=== PATIENT | male | born 1935 | race Caucasian/White ===

== ENCOUNTER 2016-07-02 05:47 | Inpatient (IN) | payer OTHER ==
--- NOTE | 2016-05-20 13:57 | PCM.ANEPRE ---
Anesthesia Pre-Op Review Reason for Review: SURGEON'S REQUEST "AGE,COMORBIDITIES,HX OF JAW SURG, CELLULITIS,FRAILITY" Anesthesia Recommendations: Proceed with Procedure Additional Comments 80 y/o male scheduled for L4-5 partial laminectomy on 05/21/16. Comorbidities include neurogenic claudication, HTN, venous stasis, weight loss. EKG performed on 05/08/16 had leads reversed which showed possible A. Fib. Upon discovering mistake an EKG with leads was performed which showed NSR. No other h/o cardiac disease. Nothing in chart review that would require delay of surgery. Continue with surgery as planned pending evaluation by DOS anesthesiologist. Alexander Gonzalez MD May 20, 2016 13:57
--- NOTE | 2016-06-28 09:05 | PCM.HPSURG ---
Subjective Date of Service: Jun 19, 2016 Referring Provider: Admitting Physician: Primary Care Physician: Kisha Wolff MD Attending Physician: Axel Ruiz MD Chief Complaint SEE BELOW History of Present Illness Patient: Sergio Bryant Date of : 1935 Visit Type: Pre Op Visit Date: 06/19/2016 01:30 PM Historian: self This 80 year old male presents for Pre-Op L4-5 Partial Laminectomy & Decompression. History of Present Illness: 1. Pre-Op L4-5 Partial Laminectomy & Decompression Sergio Bryant is a 80 year old male referred by Primary Care Provider (PCP) Dr. David Jennings M.D. & L&I Attending Dr. Kisha Wolff M.D. 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 After the patient's last preoperative appointment on 05/08/2016 his surgery was rescheduled for required Cardiology, PCP, & Nephrology clearance for surgery. The patient assures us that he has obtained clearance &'s confirmation documentation & test results are now pending. This patient was last seen for evaluation by Dr. Axel Ruiz M.D. on 2015 documenting grade 1 spondylolisthesis at L4-5 with severe canal stenosis at this level and symptoms of neurogenic claudication. 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 As he was opening the garage door, it jumped off the track, he was suddenly supporting at 250 pound weight that caused the sudden onset of low back pain and radiating pain into the left leg. His symptoms ease. With rest and anti- inflammatory agents and he was able to resume work activities. In 2012 he was again at work trying to maneuver a trailer over a hitch. As a trailer was let now admits the hitch and he was supporting an 80 pound weight old him down suddenly. This wrenched his back causing a flareup of low back and radiating pain into the left buttock. Because of this work injury, his L&I claim was reopened. The patient reports that over the past year he has had increased low back pain, impairment of balance, numbness and paresthesias constantly in the feet below the ankle. Prolonged standing causes pain into the buttocks and posterior legs to the knee with associated numbness and paresthesias. He reported that he could walk for long distances year ago. He now has symptoms of neurogenic claudication and walking is limited to 20-30 feet. Walking causes an increase in low back pain and diffuse numbness and paresthesias in his legs that can progress to weakness. If he is able to sit and lean forward for 5-10 minutes the back pain eases up and the pain down the posterior leg eases up in his strength in his legs returns. He also has low back pain associated with lying on his back that eases up if he turns on his side and curls into a position. This patient was noted to have severe canal stenosis at L4-5 and a grade 1 spondylolisthesis at L4-5. 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 Dr. Axel Ruiz, and the patient had a discussion today with regards to his neurosurgical plan. They have decided to proceed with a lumbar spinal neurosurgical decompression only. They discussed all the risks and benefits associated with the procedure as well as reasonable expectations with regards to surgical outcomes & the patient elected to proceed with surgery as planned. The patient denies any related complete or acute loss of control of bowel or bladder function, saddle paresthesia or anesthesia. The patient has a pertinent positive past medical, surgical and social history for cancer and reconstructive jaw surgery at 13, serious cellulitis infection 10 years ago (recent left leg infection resolving & completing Keflex course), chronic renal insufficiency, hypertension, weight loss & anemia improved per PCP, history of dizziness, hypoglycemia, depression, & anxiety. The patient's related complaints have been a serious detriment to their happiness and activities of daily living. Having failed conservative treatment the patient presents today for their decision for surgery appointment involving open L4-5 partial laminectomy & decompression for treatment of lumbar spondylosis, canal stenosis at L4-5 & neurogenic claudication; related to severe , intractable, and debilitating low back pain radiating to the left > right lower extremities with numbness, paresthesias, & weakness with with standing up straight or walking & better leaning forward or sitting. The procedure is scheduled to be performed by Dr. Axel Ruiz M.D. on 07/02/2016 ANESTHESIA NOTE: We are requesting anesthesia consultation for evaluation of age & comorbidities including but not limited to history of jaw surgery, frailty , & cellulitis. The patient has a resolving left lower extremity infection after completing a course of cephalexin. He has seen Nephrology for consultation of chronic renal insufficiency. The patient is also seen Cardiology & obtained clearance as well. We will obtain recent perioperative screening & test results as well as PCP, Cardiology, & Nephrology medical clearance for surgery documentation & submit for preoperative Anesthesia review. Problem List: Problem Description NSAID induced gastritis ^ Mixed hyperlipidemia BPH associated with nocturia Essential hypertension Spinal stenosis of lumbar region with radiculopathy Radiculopathy, lumbar region Peripheral polyneuropathy Right lumbar radiculitis Medical/Surgical/Interim History Reviewed, no change. Last detailed document date:06/19/2016. Family History: Reviewed, no changes. Last detailed document date:06/19/2016. Social History: Reviewed, no changes. Last detailed document date: 06/19/2016. Allergies: Ingredient Reaction Medication Name Comment NO KNOWN ALLERGIES Reviewed, no changes. Review of Systems System Neg/Pos Details Neuro Negative Dizziness, headache and seizures. GI Negative Abdominal pain, constipation, diarrhea, nausea and vomiting. Cardio Negative Chest pain, irregular heartbeat/palpitations, leg swelling and pacemaker. Integumentary Negative Mrsa and rash. Eyes Negative Double vision and vision loss. Constitutional Negative Chills and fever. Josiah/Lymph Negative Blood clots. Respiratory Negative Dyspnea, apnea and wheezing. Negative Dysuria, urge incontinence and urinary incontinence. Psych Negative Anxiety and depression. Endocrine Negative Weight gain and weight loss. MS Negative Back pain, bone/joint symptoms and muscle weakness. ENMT Negative Hearing loss. Vital Signs Height Time ft in cm Last Measured Height Position % 1:30 PM 5.0 5.00 165.10 05/08/2016 Weight/BSA/BMI Time lb oz kg Context % BMI kg/m2 BSA m2 1:30 PM 137.80 62.505 dressed with shoes 22.93 Blood Pressure Time BP mm/Hg Position Side Site Method Cuff Size 1:30 PM 111/73 sitting wrist automatic adult Temperature/Pulse/Respiration Time Temp F Temp C Temp Site Pulse/min Pattern Resp/ min 1:30 PM 97.1 36.2 temporal 47 16 Pain Scale Time Pain Score Method 1:30 PM 8/10 Numeric Pain Intensity Scale Comments Time Comments 1:30 PM Tramadol this AM Measured By Time Measured by 1:30 PM Maddie Ball RN Physical Exam Exam Findings Details Comments WD/WN, elderly male who is AO x 3, cooperative,& appears to be in NAD w/ language & speech that is intact & fluent. There is no evidence of recent or remote memory impairment. The patient's knowledge is appropriate for age & level of education w/ a pleasant affect & euthymic mood. Ambulates w/ no difficulty. NC/AT, PERRL, EOMI, w/o facial droop, hearing grossly intact, nostrils patent, oral cavity and pharynx normal. Deformed Jaw Neck supple, w/o LAD or thyromegaly. Heart reveals RRR w/o audible murmurs Lungs CTAB Abdomen is NT/ND He walks slowly with a bent forward stooped posture Venous stasis ulcers in both legs & healing LLE infxn. Neg Straight Leg Raise, Neg Patricks DTRs absent at the knees and ankles Motor strength is 3/5 right extensor hallucis longus, 45 left extensor hallucis longus, other motor groups 5/5 Diffuse diminished sensation in the right leg and foot Assessment/Plan # Detail Type Description 1. Assessment Lumbar stenosis with neurogenic claudication (M48.06). 2. Assessment Preoperative examination (Z01.818). Patient Plan We including your Attending Surgeon have discussed the risks and benefits associated your scheduled procedure which you have verbally acknowledged understanding including but not limited to the possibility of an outcome that we are unable to predict or was not mentioned. 1. You are scheduled for a open L4-5 partial laminectomy & decompression with Dr. Axel Ruiz M.D. at [facility] on 07/02/2016. 2. Check in time is 6:00 AM. Also please ignore instructions below if told otherwise by your preadmission nurse or if you do not take the medications listed below. 3. Nothing to eat after midnight the night before surgery. You may take all of your "approved" medications with small sips of water. Remember to take your a.m. hypertension medication if it is a beta paco and ends in "olol. Otherwise ask your doctor if you need to hold your a.m. hypertension medication. 4. No aspirin, ibuprofen, Naprosyn, or other NSAIDs starting 7 days prior to surgery. 5. Please stop Warfarin/Coumadin or other blood thinners such as Plavix, Aggrenox, or Xarelto 7 days prior to your surgical procedure and follow specific instructions from your prescribing provider. 6. Please stop Lovenox bridging in the morning one day prior to procedure. 7. Please stop Suboxone/Buprenorphine at least 4 days prior to procedure. 8. Go to the hospital today to get her preoperative testing done. Take the order form to the surgery desk on the second floor of the hospital, [facility] (main entrance next to the emergency entrance). I will notify you if there is any test results that require further workup prior to surgery. 9. Follow the instructions you were given today, use the cleansing cloths the night before as well as the morning of her surgery. 10. If you are prescribed inhalers, CPAP or BiPAP machines you use at home bring along with you to the hospital. 11. ONLY If you take medications for Diabetes: If you have an insulin pump continue lowest (typically night-time) basal rate into the a.m. If you do not have a pump check h your a.m. blood sugar and hold insulin if BS less than 100. If you are taking long-acting, intermediate acting (NPH) or 70/30 preparation : Take half on day of procedure. If you are taking ultra long-acting insulin such as glargine, Lantus either at night or in the a.m. continue as scheduled ( including day of surgery). If you take short acting regular insulin (insulin not delivered via pump) discontinue on day of procedure. 12. Please call if you have any questions before your surgery: [phone]. Today's instructions/counseling include(s) Pre-operative instructions given to the patient and or legal automotive leasing sales representative(s) orally and in writing. 13. Our office will contact you if there are any test results that require further workup prior to surgery. 14. Please follow up with her Primary Care Provider & with Cardiology SARAH to get medical & cardiology clearance for surgery otherwise we may have to reschedule your procedure. Provider Plan The patient's history and examination as well as radiological findings were reviewed with Dr. Axel Ruiz M.D. and conveyed the patient in detail. The findings are consistent with lumbar spondylosis, canal stenosis at L4-5, & neurogenic claudication and are most likely the cause of the patient's severe, intractable, and debilitating low back pain radiating to the left > right lower extremities with numbness, paresthesias, & weakness with standing up straight or walking & better leaning forward or sitting. The patient has failed extensive conservative treatment for this condition. The treatment options were discussed with the patient. The options include attempt to live with the condition, reattempt conservative treatment, try a pain management intervention / injection or consider a surgical intervention. We are not extremely optimistic that further conservative treatment, pain management intervention and/or injection will adequately resolve the patient's symptoms of severe, intractable, and debilitating low back pain radiating to the left > right lower extremities with numbness, paresthesias, & weakness with with standing up straight or walking & better leaning forward or sitting. Therefore we recommend open L4-5 partial laminectomy & decompression. The patient was provided/offered educational materials pertaining to their diagnosis and the above discussed procedure. We discussed the risks and benefits associated with this surgery. A spine model was used to explain the nature of this type of surgery. The risk of the required anesthesia was also mentioned including but not limited to organ failure such as heart attack, pneumonia and stroke even . The risk of this type of surgery was also mentioned. Including but not limited to an unsuccessful outcome, residual symptoms, referred or radiating posterior spinal myofascial inflammatory pain or spasm, post operative instability, instrumentation failure, sensory changes, blood loss, blood clots, wound infection, spinal cord or nerve damage, CSF or lymph leak, damage to neighboring structures such as the abdominal vasculature, bowel, ureter, and bladder, resulting in temporary or permanent dysfunction, even disability, paralysis, and . The recovery of this type of surgery was also mentioned. The chances for improvement of the neurogenic claudication related symptomatology at one year is 70-80%. The chances of improvement of local mechanical lower back pain is 50%. The patient verbalized understanding all the risks and benefits, knowing that it is impossible to predict or guarantee every surgical outcome; and would like to proceed with the above discussed procedure anyways. Surgery is scheduled for 05/21/[address] [facility] preoperative screening tests, medicine restrictions, and logistical protocols apply. Any preoperative testing is within normal limits to undergo the above discussed procedure unless otherwise noted in the medical record. ANESTHESIA NOTE: We are requesting anesthesia consultation for evaluation of age & comorbidities including but not limited to history of jaw surgery, frailty , & cellulitis. The patient has a resolving left lower extremity infection after completing a course of cephalexin. He has seen Nephrology for consultation of chronic renal insufficiency. The patient is also seen Cardiology & obtained clearance as well. We will obtain recent perioperative screening & test results as well as PCP, Cardiology, & Nephrology medical clearance for surgery documentation & submit for preoperative Anesthesia review. Medications (added, continued or stopped this visit): Start Date Medication Directions Stop Date Aleve 220 mg tablet take 2 tablet by oral route every 12 hours as needed 05/08/2016 docusate sodium 250 mg capsule take 1 capsule by oral route 2 times every day 07/18/2009 furosemide 40 mg Tab take 1 tablet (40MG) by ORAL route every day 03/15/2015 lisinopril 10 mg tablet take 1 tablet by oral route every day 05/20/2016 Randolph 5 mg-325 mg tablet take 1-2 tablet by oral route every 6 hours as needed for pain 02/20/2015 Wellbutrin XL 300 mg 24 hr tablet, extended release take 1 tablet by oral route every day Counseling/Educational Factors: Counseling / educational factors reviewed. Counseling / educational factors reviewed. This is a visit of 60 minutes. 50 minutes were spent counseling. The patient was checked out at 2:37 PM. 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 Provider: Mahamed PONCE 06/19/2016 03:48 PM Document generated by: Mahamed Jiménez 06/19/2016 03:48 PM CC Providers: David Wilde [facility] [id number] [place] [id number] [address] Allergy Allergies: Coded Allergies: No Known Allergies (Unverified , 05/08/16) Social History Hx Alcohol Use: No Hx Substance Use: No PMH HEENT History History of ENT Problems?: Yes HEENT History: Positive for:: Abnormal Airway (S/P JAW RESECTION/RECONSTRUC. W / DONOR BONE FROM HIP) Hearing Problem Other HEENT Pertinent History: CA OF JAW @ AGE 13YRS; HX OF INFECTION/ CELLULITIS 10 YRS AGO Cardiovascular History History of Heart Problems?: Yes Cardiovascular History: Positive for:: Atrial Fibrillation (EKG 05/08/16 showed AF r/t reversal of limb leads-pt actually in NSR) Hypertension (HYPERLIPIDEMIA) Denies:: Heart Murmur Irregular Heartbeat Respiratory History of Respiratory Problem: No Respiratory History: Denies:: Use of C-PAP Machine Neurological History Hx Neurologic Problems?: Yes Neurological History: Positive for:: Dizziness (INTERMITTANT) Other Neurological History: C/OF PERIPHERAL POLYNEUROPATHY Gastrointestinal History HX of GI Problems?: Yes Gastrointestinal History: Denies:: Gastroesphageal Reflux (HX NSAID-INDUCED GASTRITIS) Other GI Pertinent History: HX OF RECENT UNINTENTIONAL WEIGHT LOSS Genitourinary History Hx of Gu Problems?: Yes Other Pertinent History?: C/OF NOCTURIA Female/Male History Reproductive History Male: Positive for: Prostate Problems (BPH) Denies: Scrotal Mass Skin History Skin History: Positive for:: Pressure Ulcers (several small venous stasis ulcerations on lower legs) Denies:: History Skin Disorders? Musculoskeletal History Hx Musculoskeletal Problems?: Yes Musculoskeletal History: Positive for:: Back Injury (C/OF LOWER BACK PAIN) Psycho Social History Hx of Psycho/Social Problems?: Yes Psycho Social History: Positive for:: Anxiety Hx Depression (SEVERE) Other History Hx Any Other Health Problems?: Yes Other History: Positive for:: Cancer (JAW) Denies:: Endocrine Disease Hospitalization Thyroid Disease Diabetes: No (C/OF BOUTS OF HYPOGLYCEMIA) Social History Hx Alcohol Use: NoHx Substance Use: No Mahamed Jiménez PA-C Jun 28, 2016 09:05
[2016-07-02] VITALS (14 sets, daily range): BP systolic 135–184; BP diastolic 63–89; PULSE 61–91; RESP 11–20; O2SAT 99–100
[~2016-07-02] VITALS: Ht 165.1 cm; Wt 62.1 kg
[2016-07-02] MEDS: Lactated Ringer's 1,000 ML IV SCH ×5 (05:00→23:30)
[~2016-07-02 05:47] MED LIST: BUPR300T51 PO; Bacitracin 50,000 unit Inj IRRIGATION ONE; Bupivacaine Liposome 1.3% 20 mL Inj INFILTRATE ONE; CeFAZolin Inj 2 GM in IV Premix 1 EACH IV ONE; DOCU250C2 PO; FURO-128 PO; HYDR-4003 PO; LISI10TA PO; Lactated Ringer's 1,000 ML IV SCH; NAPR220C11 PO; Thrombin Powder 5,000 Unit TOPICAL ONE
[2016-07-02] MEDS ORDERED: Bupivacaine Liposome 1.3% 20 mL Inj INFILTRATE SCH (06:00)
[2016-07-02] MEDS: CeFAZolin Inj 2 GM in IV Premix 1 EACH IV SCH ×2 (06:00→07:45)
[2016-07-02] MEDS ORDERED: Bacitracin 50,000 unit Inj IRRIGATION SCH (06:00)
[2016-07-02] MEDS ORDERED: Thrombin Powder 5,000 Unit TOPICAL SCH (06:00)
--- NOTE | 2016-07-02 07:01 | PCM.HPANE ---
Patient Data Surgeon Admitting Provider: Attending Provider:Axel Ruiz MD Primary Care Physician:Other,Physician Other Provider:Aristides Shelby Anesthesia Reason for Visit Lumbar Stenosis With Neurogenic Claudication Ht/WT & BMI Height (Feet): 5 Height (Inches): 5.00 Weight (Kilograms): 62.1 Body Mass Index 22.00 Allergies Coded Allergies: No Known Allergies (Unverified , 05/08/16) Past Anesthesia History Anesthesia History: Positive for:: Abnormal Airway (S/P JAW RESECTION/ RECONSTRUC. W/ DONOR BONE FROM HIP), Denies:: Anesthesia Reactions, Malignant Hyperthermia Diabetes History Hx Diabetes?: No Current Bedside Blood Glucose: 89 MRSA MRSA: No Medications Hypertension Medication: Yes (LASIX,LISINOPRIL) Home Meds Incl Beta Lisa: No Reported Medications Bupropion ER (Wellbutrin XL)300 Mg Tab.er.[id number] Mg PO DAILY Ref 0 05/08/16 Hydrocodone-Acetaminophen 5-325 mg 1 Each Tablet1-2 Tablet PO Q6H PRN For Pain Ref 0 05/08/16 Lisinopril 10 Mg [id number] Mg PO DAILY 30 Days Ref 0 05/08/16 Furosemide (Lasix)40 Mg [id number] Mg PO DAILY 30 Days Ref 0 05/08/16 Docusate Sodium 250 Mg [id number] Mg PO BID PRN For Constipation Ref 0 05/08/16 Naproxen Sodium (Aleve)220 Mg [id number] Mg PO BID PRN prn 05/08/16 History History of ENT Problems?: Yes HEENT History: Positive for:: Abnormal Airway (S/P JAW RESECTION/RECONSTRUC. 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; HX OF INFECTION/ CELLULITIS 10 YRS AGO Hx of Heart Problems?: Yes Cardiovascular History: Positive for:: Atrial Fibrillation (EKG 05/08/16 showed AF r/t reversal of limb leads-pt actually in NSR) Hypertension (HYPERLIPIDEMIA) Denies:: Heart Murmur Irregular Heartbeat Hx of Respiratory Problem?: No Respiratory History: Denies:: Use of C-PAP Machine Hx Neurologic Problems?: Yes Neurological History: Positive for:: Dizziness (INTERMITTANT) Other Neurological Pertinent: C/OF PERIPHERAL POLYNEUROPATHY Hx of GI Problems?: Yes Gastrointestinal History: Denies:: Gastroesphageal Reflux (HX NSAID-INDUCED GASTRITIS) Other GI Pertinent History: HX OF RECENT UNINTENTIONAL WEIGHT LOSS Hx of Problems?: Yes Other Pertinent History: C/OF NOCTURIA Male Hx: Positive for:: Prostate Problems (BPH) Denies:: Scrotal Mass Testicular Surgery Skin History: Positive for:: Pressure Ulcers (several small venous stasis ulcerations on lower legs) Denies:: History Skin Disorders? Hx Musculoskeletal Problems?: Yes Musculoskeletal History: Positive for:: Back Injury (C/OF LOWER BACK PAIN) Hx of Psycho/Social Problems?: Yes Psycho Social History: Positive for:: Anxiety Hx Depression (SEVERE) Hx Surgeries?: Yes (JAW RESECTION/RECONSTRUCTION W/ DONOR BONE FROM HIP) Hx Any Other Health Problems?: Yes Other History: Positive for:: Cancer (JAW) Denies:: Endocrine Disease Hospitalization Thyroid Disease History Blood Transfusions: Denies:: Blood Transfusions Hx Diabetes: NoBedside Blood Glucose: 89 Hx Alcohol Use: NoHx Substance Use: No Smoking Status: Never Smoker Have You Smoked inLast 12 mo: No Stop/Bang S-Snoring: Do You Snore Loudly: No T-Tired: feel tired, fatigued: No O-Obsered: Observed not breath: No P-Blood Pressure: treated: Yes B- Body Mass Index > 35 kg/m2: No A- Age over 50: Yes N- Neck Large Circumference: No G- Gender Male: Yes DHARA Total Score: 3 DHARA Risk Assessment: High Risk, =/>3 Yes DHARA Category 2: Yes Risk Assessment Category Category 1A: Patient has history of documented sleep apnea, and HAS NOT received any narcotic, sedative or anesthesia administration during this stay. Category 1B: Patient has history of documented sleep apnea, and HAS received any narcotic , sedative or anesthesia administration during this stay Category 2: Patient has SUSPECTED Obstructive Sleep Apnea, and HAS received any narcotic , sedative or anesthesia administration during this stay. Category 3: Patient has SUSPECTED Obstructive Sleep Apnea and HAS NOT received narcotic, sedative or anesthesia administration during this stay. Category 4: Outpatient in Procedural Areas with known sleep apnea or who screen positive for High Risk via the STOP/BANG questionnaire. Exam Exam Vital Signs Vital Signs Date Time Temp Pulse Resp B/P Pulse Ox O2 Delivery O2 Flow Rate FiO2 07/02/16 06:13 37.0 80 16 184/66 100 Room Air General Appearance: Alert, Oriented X3, Cooperative, No Acute Distress HEENT/AIRWAY: MP 2, Neck Movement (FRoM), Mouth Opening (2-3FB, less on left side given prior jaw surgery) Lungs: Normal Air Movement Heart: Exam Unremarkable Meds/Labs/Diagnostics Admission Meds Current Medications Lactated Ringer's (Lr) 1,000 ml @ 120 mls/hr Q8H20M IV Last administered on t 05:19; Start 07/02/16 at 05:00; Stop 07/02/16 at 13:19 Bedside Blood Glucose: 89 Plan Impression Patient chart reviewed, patient interviewed and anesthestic plan with risks, benefits, and alternatives discussed, and informed consent obtained. NPO Status: 07/01 at 1900 ASA Physical Status: ASA2 Mod Systemic Disease Anesthetic Support Modalities: [place] Scope (available given h/o jaw surgery. Appears to be an easy mask ventilation) Anesthetic Plan: GA Bene/Risks/Altern/Consents: Yes HP Complete Prior to Induction: Yes Mahamed Marrero MD Jul 02, 2016 07:01
[2016-07-02] MEDS ORDERED: Ondansetron 2 mg/mL 2 mL Inj IVPUSH PRN ×3 (07:50→11:00)
[2016-07-02] MEDS ORDERED: Phenylephrine 10,000 mCg/mL Inj IVPUSH PRN (07:50)
[2016-07-02] MEDS ORDERED: MetoCLOpramide 5 mg/mL 2 mL Inj IVPUSH PRN ×2 (07:50→11:00)
[2016-07-02] MEDS ORDERED: Dexamethasone 4 mg/mL Inj IVPUSH PRN (07:50)
[2016-07-02] MEDS ORDERED: HYDROmorphone 1 mg/mL Inj IVPUSH PRN ×2 (07:50→11:00)
[2016-07-02] MEDS ORDERED: Lactated Ringer's 500 ML IV PRN (07:50)
[2016-07-02] MEDS ORDERED: EPHEDrine Sulfate 50 mg/mL Inj IVPUSH PRN (07:50)
[2016-07-02] MEDS ORDERED: Lactated Ringer's 1,000 ML IV SCH (07:50)
[2016-07-02] MEDS ORDERED: fentaNYL-PF 50 mCg/mL 2 mL Inj IVPUSH PRN (07:50)
[2016-07-02] MEDS ORDERED: Albuterol-Ipratropium 3 mL Inhalation Solution NEB PRN (07:50)
[2016-07-02] MEDS ORDERED: Gelatin Sponge 12-7 MM TOPICAL ONE (08:18)
[2016-07-02] MEDS ORDERED: Bacitracin 50,000 unit Inj IRRIGATION ONE (08:18)
[2016-07-02] MEDS ORDERED: Bupivacaine-MPF 0.5% 30 mL Inj INFILTRATE ONE (08:19)
--- NOTE | 2016-07-02 08:32 | DRSVH ---
PROCEDURE: X-RAY LUMBAR SPINE, 1 VIEW INDICATIONS: LUMBAR SPINE SURGERY TECHNIQUE: Single intraoperative views of the lumbar spine were acquired. COMPARISON: [facility], CR, XR LUMBAR SPINE LAT FL EX 3VW, 01/31/2016, 11:07. FINDINGS: Bones: There are severe degenerative changes throughout the lumbar spine. Intraoperative marker is po sterior to the fourth lumbar spinal process. IMPRESSION: Single sagittal view with intraoperative marker at L4. This finding was discussed with Dr. Ruiz at 8:15 AM on 07/02/16. Dictated by: Samantha Bains M.D. on 07/02/2016 at 8:20 Approved by: Samantha Bains M.D. on 07/02/2016 at 8:30
[2016-07-02] MEDS ORDERED: Polyethylene Glycol (PEG) 17 Gm Powder PO PRN ×2 (11:00)
[2016-07-02] MEDS ORDERED: Magnesium Hydroxide 10 mL Oral Concentration PO PRN ×2 (11:00)
[2016-07-02] MEDS ORDERED: HYDROcodone-APAP 5-325 mg Tablet PO PRN (11:00)
[2016-07-02] MEDS ORDERED: HYDROcodone-APAP 10-325 mg PO PRN (11:00)
[2016-07-02] MEDS ORDERED: Senna-Docusate 8.6-50 mg Tablet PO PRN ×2 (11:00)
[2016-07-02] MEDS ORDERED: Sodium Biphos-Phos 133 mL Enema RECTAL PRN ×2 (11:00)
--- NOTE | 2016-07-02 11:14 | PCM.ANEP1 ---
Post Anesthesia Phase 1 PACU Phase 1 Assessment Date of Service: Jun 19, 2016 Vital Signs see anesthesia record Vital Signs Date Time Temp Pulse Resp B/P Pulse Ox O2 Delivery O2 Flow Rate FiO2 07/02/16 06:13 37.0 80 16 184/66 100 Room Air Anesthetic Administered: GA Level of Alertness: Sleepy, easy to arouse HORN's with Equal Strength: Yes Pain: No Nausea or Vomiting: No Oxygen Delivery: Simple Mask Lungs: Normal Air Movement Mahamed Marrero MD Jul 02, 2016 11:14
[2016-07-02 11:55] LABS: APPEARANCE,URINE HAZY (CLEAR,HAZY); COLOR,URINE YELLOW (YELLOW); OCCULT BLOOD,URINE NEGATIVE (NEGATIVE); PH,URINE 5.5 (5.0-8.0); UROBILINOGEN,URINE NORMAL (NORMAL)
[2016-07-02] MEDS ORDERED: Lactated Ringer's 1,000 ML IV ONE (12:06)
--- NOTE | 2016-07-02 12:27 | PCM.ANEP2 ---
Post Anesthesia Evaluation ASA/CMS Post Anesthesia VS in Patient's Normal Range?: Yes Resp Stable; Airway Patent?: Yes CV Function & Hydration Stable: Yes Mental Status Recovered?: Yes Pain control Satisfactory?: Yes N/V Control Satisfactory?: Yes Mahamed Marrero MD Jul 02, 2016 12:27
[2016-07-02] MEDS: hydrOXYzine Pamoate 25 mg Capsule PO PRN ×2 (14:56→22:38)
[2016-07-02] MEDS: HYDROcodone-APAP 5-325 mg Tablet PO PRN ×2 (14:56→16:55)
[2016-07-02] MEDS ORDERED: CeFAZolin Inj 2 GM in IV Premix 1 EACH IV ONE (16:30)
--- NOTE | 2016-07-02 18:51 | NUR ---
Arrival to Floor, Pain Patient arrived to floor from PACU alert and oriented. Patient reports no pain to surgical site, dressing clean, dry and intact. Patient does report feeling a small amount of numbness to his toes, states this is primarily when moving them. Patient has sensation in toes, ability to move toes, brisk capillary refill, palpable pedal pulse. Patient states that the numbness sensation has been steadily decreasing. As shift progressed patient reported some pain at the surgical site. Ordered pain medications treat pain well and keep pain within a tolerable level. Care is ongoing.
--- NOTE | 2016-07-02 19:44 | OP ---
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 POSTOPERATIVE DIAGNOSIS(ES): PROCEDURE: Left L4-5 partial hemilaminectomy with bilateral lateral recess decompression and dural repair. SURGEON: Axel Ruiz MD CHILDCARE WORKER: OSWALDO Butler. ANESTHESIA: General with Mahamed Marrero MD. ESTIMATED BLOOD LOSS: 50 cc. DRAINS: None. COMPLICATIONS: None. This patient had an incidental dural puncture that was repaired primarily. INDICATIONS: This patient had a stable, grade 1 spondylolisthesis at L4-5, with severe canal stenosis and neurogenic claudication. The patient was initially scheduled for an L4-5 partial laminectomy with bilateral lateral recess decompression because of the dural puncture, I elected to perform a left L4-5 partial hemilaminectomy with bilateral lateral recess decompression through this left-sided approach, leaving the right side intact. Accomplished two goals; one, it further stabilized the L4-5 motion segment and provided back pressure to help with the CSF repair to prevent CSF leakage postop. DESCRIPTION OF PROCEDURE: This patient was taken to the operating room on July 02, 2016, placed under general anesthesia, placed prone on a Eduardo frame and prepped and draped sterile. The skin was infiltrated with 0.5% plain Marcaine. A spinal needle was used to help localize the incision site at L4-5. The lateral intraoperative x-ray confirmed the placement of the spinal needle just inferior caudal to the L4 spinous process. The incision was then carried down sharply through the skin and subcutaneous tissues. Hemostasis was achieved with the monopolar. The monopolar was used to incise the dorsal lumbar fascia along the spinous processes of L4 and L5 bilaterally, using the Varela elevator to remove the soft tissue from the L4 and L5 lamina bilaterally. A towel clip was placed on the spinous process of L4, and this marker was confirmed with an intraoperative lateral lumbar x-ray. The position of the marker was confirmed by Radiology. The partial laminectomy was initiated on the left side. This patient had exceedingly tight canal stenosis and the ligament was firmly adherent to the dura. At one point, the curette punctured the dura, while I was trying to create a plane between the dura and the ligament. Because of the puncture of the dura, there was some CSF leakage and I elected to decompress the central canal from the left side. It was possible to carefully create a plane the ligament from the dura, and this was a small rent in the dura, measuring approximately 5 mm. It was possible through this left-sided approach to remove the ligament on the left side and the right side and perform lateral recess decompression bilaterally. The decompression was taken above the disk space and below the disk space. This patient had an aggressive decompression of the central canal. The dural defect was repaired with two sutures of [place]. Valsalva was performed and there was no additional CSF leakage. Duraform was applied to the dural repair. Then, additional Gelfoam was placed in the partial hemilaminectomy defect. Exparel was then injected. The patient had dilute Exparel 20 cc diluted to 60 cc with normal saline. 15 cc of this dilute Exparel was placed deep into the paraspinous muscles on the right side and another 15 placed deep into the paraspinous musculature on the left side. The additional 30 cc were placed in the subcutaneous tissues and dermal tissues superficially. The dorsal lumbar fascia was approximated with interrupted sutures of 0 Vicryl, the subcutaneous tissues closed with 2-0 Vicryl, and the skin was closed with 4-0 Vicryl using a subcuticular stitch. Steri-Strips were applied to the skin, which was dressed with Telfa, gauze, and tape.
[2016-07-02] MEDS: HYDROcodone-APAP 7.5-325 mg Tablet PO PRN ×2 (19:45→22:38)
[2016-07-02] MEDS ORDERED: Senna-Docusate 8.6-50 mg Tablet PO SCH (20:30)
[2016-07-02] MEDS: Senna-Docusate 8.6-50 mg Tablet PO SCH (20:31)
[2016-07-03 00:36] VITALS: BP 149/69; PULSE 70; RESP 18; O2SAT 98
[2016-07-03] MEDS: Lactated Ringer's 1,000 ML IV SCH ×2 (01:56→20:40)
--- NOTE | 2016-07-03 02:04 | NUR ---
Pain Pain controlled with po analgesia.VSS and orthos improved from pre-op.Cont. to have some numbness to toes and feet bilaterally.Pulses palpable and cap refill brisk.Mikala. some po fluids w/o c/o nausea.UOP qs via mane.Lungs clear bilat with RA sats in the high 90s.Sleeping soundly at this time and resting comfortably.Will cont. to monitor.
[2016-07-03] MEDS: HYDROcodone-APAP 7.5-325 mg Tablet PO PRN ×2 (02:52→06:32)
[2016-07-03] MEDS: hydrOXYzine Pamoate 25 mg Capsule PO PRN ×2 (02:52→06:32)
[2016-07-03 06:15] VITALS: BP 137/66; PULSE 61; RESP 18; O2SAT 100
[2016-07-03] MEDS ORDERED: buPROPion XL 300 mg ER24 Tablet PO SCH (08:30)
--- NOTE | 2016-07-03 09:52 | PCM.DISURG ---
Surgical Discharge Instruction Date of Service Jul 03, 2016 Dates of Hospitalization Date of Hospital Admission Outpatient with a bed status 07/02/2016 Providers Admitting Physician: Primary Care Physician: Other,Physician Attending Physician: Axel Ruiz MD Discharge Diagnosis Discharge Diagnosis Status post Left L4-5 partial hemilaminectomy with bilateral lateral recess decompression & incidental durotomy Post Operative diagnosis Status post Left L4-5 partial hemilaminectomy with bilateral lateral recess decompression & incidental durotomy Additional Instructions Discharge Instructions Lumbar Decompression Instructions What is my recovery like? The hospital stay is usually overnight with discharge the next day. A lumbar brace is worn for comfort only. What are my restrictions? You should not lift anything heavier than five pounds. You should not perform any excessive bending from the waist or twisting movements. Can I Shower? You may shower when you go home. You must remove the outside dressing on the 7th day after surgery, or change as needed if soiled or saturated (replacing new sterile gauze & water proof dressing) otherwise leave alone. The remaining small pieces of tape (steri-strips) directly on top of the incision may get wet. The steri-strips will fall off on their own. Can I drive? No, you should not drive until specifically given permission from your Doctor in a follow up appointment. Most Patient's can drive in 2-3 weeks if they are not taking narcotic pain medications or muscle relaxers. You may ride in a car, but should avoid trips longer than two hours in duration. When can I return work / sports? Your Doctor will discuss your return to work with you on your first postoperative follow-up appointment. Most patients may return to work within 2 weeks for sedentary jobs. More physically demanding jobs may require 3-6 months of healing before such work can be considered. When should I call the doctor? You should call your Doctor or go to the Emergency Department if you develop chest pain, shortness of breath, a temperature greater than 101.5 F, severe uncontrolled pain or weakness, related positional or "spinal" headache, oversedation, loss of bowel or bladder function, choking, lots or drainage, pus discharge or constipation. Instructions Regarding Comfort & Pain Medication Use: During the recovery period , even with the use of pain medication, you may experience pain at the site of surgery. You may also have the same type of pain you had before surgery. Please use your pain scale as a guide for taking your pain medication. When your pain is greater than 4 out of 10, or when your pain reaches your personal tolerable level of pain, take your pain medication as prescribed. Use your pain medication on an 'as needed' basis. This means if your pain level is within your tolerable level of pain you DO NOT need to take the medication. As you get better, you will notice you can increase the time interval between doses and decrease the number of tablets you are taking, gradually taking less and less pain medication. Taking pain medication when it is not necessary (for example when your pain is tolerable or acceptable) can result in dangerous side effects and over- sedation. Signs and symptoms of over-sedation include: drowsiness, excessive sleeping, slow or difficult breathing, slurred speech, impaired thinking, confusion, impaired motor coordination. If you have any of these symptoms stop taking the medication and immediately contact your doctor. IF SYMPTOMS ARE LIFE THREATENING CALL 911. To decrease pain and swelling, frequently apply an ice pack for 20 min intervals with at least one hour off. When to take Acetaminophen for pain? If you don't have liver problems, allergies and/or Tylenol is not in your current pain medication. Take Extra Strength Tylenol 500mg 2 tabs by mouth every 6 hours as needed for pain. DO NOT EXCEED 8 TABS PER DAY. Follow-up next week in your Nephrology Clinic for postoperative reevaluation. Follow Up Plan Follow Up Plan 1. Follow-up with physician event sales assistant in outpatient Neurosurgical clinic in 1 week for wound check. 2. Follow-up with physician event sales assistant and outpatient Nephrology clinic in 1 week for postoperative reevaluation. Additional Information Attending Statement All documentation reviewed & orders authorized by Shabana Leal Scott PA-C Jul 03, 2016 09:52
--- NOTE | 2016-07-03 10:01 | PCM.DC.SUR ---
Discharge Summary Date of Service: Jul 03, 2016 Date of Hospital Admission: Outpatient with bed status 07/02/2016 Date of Operation(s): 07/02/2016 Date of Discharge: 07/03/2016 Operation Left L4-5 partial hemilaminectomy with bilateral lateral recess decompression & incidental durotomy Brief History and Physical: Patient: Sergio Bryant Date of : 1935 Visit Type: Pre Op Visit Date: 06/19/2016 01:30 PM Historian: self This 80 year old male presents for Pre-Op L4-5 Partial Laminectomy & Decompression. History of Present Illness: 1. Pre-Op L4-5 Partial Laminectomy & Decompression Sergio Bryant is a 80 year old male referred by Primary Care Provider (PCP) Dr. David Jennings M.D. & L&I Attending Dr. Kisha Wolff M.D. 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 After the patient's last preoperative appointment on 05/08/2016 his surgery was rescheduled for required Cardiology, PCP, & Nephrology clearance for surgery. The patient assures us that he has obtained clearance &'s confirmation documentation & test results are now pending. This patient was last seen for evaluation by Dr. Axel Ruiz M.D. on 2015 documenting grade 1 spondylolisthesis at L4-5 with severe canal stenosis at this level and symptoms of neurogenic claudication. 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 As he was opening the garage door, it jumped off the track, he was suddenly supporting at 250 pound weight that caused the sudden onset of low back pain and radiating pain into the left leg. His symptoms ease. With rest and anti- inflammatory agents and he was able to resume work activities. In 2012 he was again at work trying to maneuver a trailer over a hitch. As a trailer was let now admits the hitch and he was supporting an 80 pound weight old him down suddenly. This wrenched his back causing a flareup of low back and radiating pain into the left buttock. Because of this work injury, his L&I claim was reopened. The patient reports that over the past year he has had increased low back pain, impairment of balance, numbness and paresthesias constantly in the feet below the ankle. Prolonged standing causes pain into the buttocks and posterior legs to the knee with associated numbness and paresthesias. He reported that he could walk for long distances year ago. He now has symptoms of neurogenic claudication and walking is limited to 20-30 feet. Walking causes an increase in low back pain and diffuse numbness and paresthesias in his legs that can progress to weakness. If he is able to sit and lean forward for 5-10 minutes the back pain eases up and the pain down the posterior leg eases up in his strength in his legs returns. He also has low back pain associated with lying on his back that eases up if he turns on his side and curls into a position. This patient was noted to have severe canal stenosis at L4-5 and a grade 1 spondylolisthesis at L4-5. 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 Dr. Axel Ruiz, and the patient had a discussion today with regards to his neurosurgical plan. They have decided to proceed with a lumbar spinal neurosurgical decompression only. They discussed all the risks and benefits associated with the procedure as well as reasonable expectations with regards to surgical outcomes & the patient elected to proceed with surgery as planned. The patient denies any related complete or acute loss of control of bowel or bladder function, saddle paresthesia or anesthesia. The patient has a pertinent positive past medical, surgical and social history for cancer and reconstructive jaw surgery at 13, serious cellulitis infection 10 years ago (recent left leg infection resolving & completing Keflex course), chronic renal insufficiency, hypertension, weight loss & anemia improved per PCP, history of dizziness, hypoglycemia, depression, & anxiety. The patient's related complaints have been a serious detriment to their happiness and activities of daily living. Having failed conservative treatment the patient presents today for their decision for surgery appointment involving open L4-5 partial laminectomy & decompression for treatment of lumbar spondylosis, canal stenosis at L4-5 & neurogenic claudication; related to severe , intractable, and debilitating low back pain radiating to the left > right lower extremities with numbness, paresthesias, & weakness with with standing up straight or walking & better leaning forward or sitting. The procedure is scheduled to be performed by Dr. Axel Ruiz M.D. on 07/02/2016 ANESTHESIA NOTE: We are requesting anesthesia consultation for evaluation of age & comorbidities including but not limited to history of jaw surgery, frailty , & cellulitis. The patient has a resolving left lower extremity infection after completing a course of cephalexin. He has seen Nephrology for consultation of chronic renal insufficiency. The patient is also seen Cardiology & obtained clearance as well. We will obtain recent perioperative screening & test results as well as PCP, Cardiology, & Nephrology medical clearance for surgery documentation & submit for preoperative Anesthesia review. Problem List: Problem Description NSAID induced gastritis ^ Mixed hyperlipidemia BPH associated with nocturia Essential hypertension Spinal stenosis of lumbar region with radiculopathy Radiculopathy, lumbar region Peripheral polyneuropathy Right lumbar radiculitis Medical/Surgical/Interim History Reviewed, no change. Last detailed document date:06/19/2016. Family History: Reviewed, no changes. Last detailed document date:06/19/2016. Social History: Reviewed, no changes. Last detailed document date: 06/19/2016. Allergies: Ingredient Reaction Medication Name Comment NO KNOWN ALLERGIES Reviewed, no changes. Review of Systems System Neg/Pos Details Neuro Negative Dizziness, headache and seizures. GI Negative Abdominal pain, constipation, diarrhea, nausea and vomiting. Cardio Negative Chest pain, irregular heartbeat/palpitations, leg swelling and pacemaker. Integumentary Negative Mrsa and rash. Eyes Negative Double vision and vision loss. Constitutional Negative Chills and fever. Josiah/Lymph Negative Blood clots. Respiratory Negative Dyspnea, apnea and wheezing. Negative Dysuria, urge incontinence and urinary incontinence. Psych Negative Anxiety and depression. Endocrine Negative Weight gain and weight loss. MS Negative Back pain, bone/joint symptoms and muscle weakness. ENMT Negative Hearing loss. Vital Signs Height Time ft in cm Last Measured Height Position % 1:30 PM 5.0 5.00 165.10 05/08/2016 Weight/BSA/BMI Time lb oz kg Context % BMI kg/m2 BSA m2 1:30 PM 137.80 62.505 dressed with shoes 22.93 Blood Pressure Time BP mm/Hg Position Side Site Method Cuff Size 1:30 PM 111/73 sitting wrist automatic adult Temperature/Pulse/Respiration Time Temp F Temp C Temp Site Pulse/min Pattern Resp/ min 1:30 PM 97.1 36.2 temporal 47 16 Pain Scale Time Pain Score Method 1:30 PM 8/10 Numeric Pain Intensity Scale Comments Time Comments 1:30 PM Tramadol this AM Measured By Time Measured by 1:30 PM Maddie Ball RN Physical Exam Exam Findings Details Comments WD/WN, elderly male who is AO x 3, cooperative,& appears to be in NAD w/ language & speech that is intact & fluent. There is no evidence of recent or remote memory impairment. The patient's knowledge is appropriate for age & level of education w/ a pleasant affect & euthymic mood. Ambulates w/ no difficulty. NC/AT, PERRL, EOMI, w/o facial droop, hearing grossly intact, nostrils patent, oral cavity and pharynx normal. Deformed Jaw Neck supple, w/o LAD or thyromegaly. Heart reveals RRR w/o audible murmurs Lungs CTAB Abdomen is NT/ND He walks slowly with a bent forward stooped posture Venous stasis ulcers in both legs & healing LLE infxn. Neg Straight Leg Raise, Neg Patricks DTRs absent at the knees and ankles Motor strength is 3/5 right extensor hallucis longus, 45 left extensor hallucis longus, other motor groups 5/5 Diffuse diminished sensation in the right leg and foot Assessment/Plan # Detail Type Description 1. Assessment Lumbar stenosis with neurogenic claudication (M48.06). 2. Assessment Preoperative examination (Z01.818). Patient Plan We including your Attending Surgeon have discussed the risks and benefits associated your scheduled procedure which you have verbally acknowledged understanding including but not limited to the possibility of an outcome that we are unable to predict or was not mentioned. 1. You are scheduled for a open L4-5 partial laminectomy & decompression with Dr. Axel Ruiz M.D. at [facility] on 07/02/2016. 2. Check in time is 6:00 AM. Also please ignore instructions below if told otherwise by your preadmission nurse or if you do not take the medications listed below. 3. Nothing to eat after midnight the night before surgery. You may take all of your "approved" medications with small sips of water. Remember to take your a.m. hypertension medication if it is a beta paco and ends in "olol. Otherwise ask your doctor if you need to hold your a.m. hypertension medication. 4. No aspirin, ibuprofen, Naprosyn, or other NSAIDs starting 7 days prior to surgery. 5. Please stop Warfarin/Coumadin or other blood thinners such as Plavix, Aggrenox, or Xarelto 7 days prior to your surgical procedure and follow specific instructions from your prescribing provider. 6. Please stop Lovenox bridging in the morning one day prior to procedure. 7. Please stop Suboxone/Buprenorphine at least 4 days prior to procedure. 8. Go to the hospital today to get her preoperative testing done. Take the order form to the surgery desk on the second floor of the hospital, [facility] (main entrance next to the emergency entrance). I will notify you if there is any test results that require further workup prior to surgery. 9. Follow the instructions you were given today, use the cleansing cloths the night before as well as the morning of her surgery. 10. If you are prescribed inhalers, CPAP or BiPAP machines you use at home bring along with you to the hospital. 11. ONLY If you take medications for Diabetes: If you have an insulin pump continue lowest (typically night-time) basal rate into the a.m. If you do not have a pump check h your a.m. blood sugar and hold insulin if BS less than 100. If you are taking long-acting, intermediate acting (NPH) or 70/30 preparation : Take half on day of procedure. If you are taking ultra long-acting insulin such as glargine, Lantus either at night or in the a.m. continue as scheduled ( including day of surgery). If you take short acting regular insulin (insulin not delivered via pump) discontinue on day of procedure. 12. Please call if you have any questions before your surgery: [phone]. Today's instructions/counseling include(s) Pre-operative instructions given to the patient and or legal office machines sales representative(s) orally and in writing. 13. Our office will contact you if there are any test results that require further workup prior to surgery. 14. Please follow up with her Primary Care Provider & with Cardiology SARAH to get medical & cardiology clearance for surgery otherwise we may have to reschedule your procedure. Provider Plan The patient's history and examination as well as radiological findings were reviewed with Dr. Axel Ruiz M.D. and conveyed the patient in detail. The findings are consistent with lumbar spondylosis, canal stenosis at L4-5, & neurogenic claudication and are most likely the cause of the patient's severe, intractable, and debilitating low back pain radiating to the left > right lower extremities with numbness, paresthesias, & weakness with standing up straight or walking & better leaning forward or sitting. The patient has failed extensive conservative treatment for this condition. The treatment options were discussed with the patient. The options include attempt to live with the condition, reattempt conservative treatment, try a pain management intervention / injection or consider a surgical intervention. We are not extremely optimistic that further conservative treatment, pain management intervention and/or injection will adequately resolve the patient's symptoms of severe, intractable, and debilitating low back pain radiating to the left > right lower extremities with numbness, paresthesias, & weakness with with standing up straight or walking & better leaning forward or sitting. Therefore we recommend open L4-5 partial laminectomy & decompression. The patient was provided/offered educational materials pertaining to their diagnosis and the above discussed procedure. We discussed the risks and benefits associated with this surgery. A spine model was used to explain the nature of this type of surgery. The risk of the required anesthesia was also mentioned including but not limited to organ failure such as heart attack, pneumonia and stroke even . The risk of this type of surgery was also mentioned. Including but not limited to an unsuccessful outcome, residual symptoms, referred or radiating posterior spinal myofascial inflammatory pain or spasm, post operative instability, instrumentation failure, sensory changes, blood loss, blood clots, wound infection, spinal cord or nerve damage, CSF or lymph leak, damage to neighboring structures such as the abdominal vasculature, bowel, ureter, and bladder, resulting in temporary or permanent dysfunction, even disability, paralysis, and . The recovery of this type of surgery was also mentioned. The chances for improvement of the neurogenic claudication related symptomatology at one year is 70-80%. The chances of improvement of local mechanical lower back pain is 50%. The patient verbalized understanding all the risks and benefits, knowing that it is impossible to predict or guarantee every surgical outcome; and would like to proceed with the above discussed procedure anyways. Surgery is scheduled for 05/21/2016 The standard [facility] preoperative screening tests, medicine restrictions, and logistical protocols apply. Any preoperative testing is within normal limits to undergo the above discussed procedure unless otherwise noted in the medical record. ANESTHESIA NOTE: We are requesting anesthesia consultation for evaluation of age & comorbidities including but not limited to history of jaw surgery, frailty , & cellulitis. The patient has a resolving left lower extremity infection after completing a course of cephalexin. He has seen Nephrology for consultation of chronic renal insufficiency. The patient is also seen Cardiology & obtained clearance as well. We will obtain recent perioperative screening & test results as well as PCP, Cardiology, & Nephrology medical clearance for surgery documentation & submit for preoperative Anesthesia review. Medications (added, continued or stopped this visit): Start Date Medication Directions Stop Date Aleve 220 mg tablet take 2 tablet by oral route every 12 hours as needed 05/08/2016 docusate sodium 250 mg capsule take 1 capsule by oral route 2 times every day 07/18/2009 furosemide 40 mg Tab take 1 tablet (40MG) by ORAL route every day 03/15/2015 lisinopril 10 mg tablet take 1 tablet by oral route every day 05/20/2016 [place] 5 mg-325 mg tablet take 1-2 tablet by oral route every 6 hours as needed for pain 02/20/2015 Wellbutrin XL 300 mg 24 hr tablet, extended release take 1 tablet by oral route every day Counseling/Educational Factors: Counseling / educational factors reviewed. Counseling / educational factors reviewed. This is a visit of 60 minutes. 50 minutes were spent counseling. The patient was checked out at 2:37 PM. This document may have been created using voice recognition software or other electronic means and may contain inadvertent americanization teacher errors. Provider: Mahamed PONCE 06/19/2016 03:48 PM Document generated by: Mahamed Jiménez 06/19/2016 03:48 PM CC Providers: David Wilde [facility] [id number] [place] [address] lety carranza i n i c s Jose jo g Hospital Course: Hospital Course: The patient was admitted through same day surgery and subsequently underwent a Left L4-5 partial hemilaminectomy with bilateral lateral recess decompression & incidental durotomy. The patient tolerated the procedure well. The patient was then was transferred to PACU and then to the OSC floor. The patient was admitted for postoperative pain control, PT/OT, supervised for mild urinary obstruction, dural tear repair length lateral overnight, monitor for possible related position all for "spinal" headache which did not occur, peripheral vascular disease with healing right leg wound status post successful infection treatment & PCP clearance, the percent stage IV chronic kidney disease with Nephrology clearance for surgery co-morbidities with nurse monitoring, postoperative renal function labs, continuous pulse oximetry, and discharge planning. The Patient's overnight course within normal limits laying flat overnight. Currently the patient has complaints of only mild surgical site pain & discomfort. There is significant improvement of the patient's residual related lumbar spinal stenosis with neurogenic claudication symptoms in the bilateral lower extremities. Although physical therapy recommended FWW & home health physical therapy for continued postoperative evaluation. The patient denies related positional or "spinal" headache, severe sore throat or dysphagia, chest pain, shortness of breath, abdominal pain, nausea, vomiting , constipation, diarrhea, or any new onset &/or location of pain, weakness or paresthesias aside from the surgical site. PHYSICAL EXAM This is a well developed, well nourished, elderly male who is alert, cooperative , and appears to be in no acute distress with a [] affect & euthymic mood. Exam of the head is normocephalic. PERRL, EOMI, without facial droop, hearing grossly intact, nostrils patent, oral cavity and pharynx normal. Voice is within normal limits Exam or the heart reveals regular rate and rhythm without audible murmurs The lungs are clear to auscultation bilaterally. The abdomen is non- tender and non-distended. Right leg peripheral vascular disease insufficiency and venous stasis ulcers healing well without signs of overt infection. Exam of the lumbar surgical wound reveals that it is clean, dry, and intact; without signs of infection, inflammation, and/or hematoma. Gross exam of the extremities reveals strength & sensation are grossly intact within the patient's normal baseline limits except improved bilateral lower extremity strength & right lower extremity sensation. The patient was eventually able to get out of bed and ambulate within acceptable limits. Therapy services made recommendations for disposition. Flatus was appreciated and the patient was able to void without significant difficulty. The pain was gradually under control. The patient was afebrile on discharge. The patient's incision(s) was clean, dry and intact. The dressing was changed to the Surgeon's specifications. The patient progressed well with rehabilitation and was subsequently discharged to home with home health services arranged in stable condition. The patient was encouraged to follow up with his Nephrology specialist next available appointment next week for postoperative evaluation. The patient verbally affirmed understanding when given clear instruction regarding the postoperative care and follow-up including but not limited to lifting out for additional signs of infection, avoiding falls, seeking immediate medical attention for chest pain, oversedation, shortness of breath, a temperature greater than 101.5 F, severe uncontrolled pain or weakness, loss of bowel or bladder function, choking, lots or drainage, pus discharge or constipation. All questions were answered. Disposition: Home in stable condition. Follow-up Plan: 1. Follow-up with physician anatomic pathology assistant in outpatient Neurosurgical clinic in 1 week for wound check. 2. Follow-up with physician anatomic pathology assistant in outpatient Nephrology clinic in 1 week for postoperative reevaluation. Bupropion ER (Wellbutrin XL) 300 Mg Tab.er.24h 300 MG PO DAILY (Reported) Docusate Sodium (Docusate Sodium) 250 Mg Capsule 250 MG PO BID PRN PRN For Constipation (Reported) Furosemide (Lasix) 40 Mg Tablet 40 MG PO DAILY (Reported) Hydrocodone-Acetaminophen 5-325 mg (Hydrocodone-Acetaminophen 5-325 mg) 1 Each Tablet 1-2 TABLET PO Q6H PRN PRN For Pain (Reported) Lisinopril (Lisinopril) 10 Mg Tablet 10 MG PO DAILY (Reported) Discharge Medications: Prescribed and the patient's preoperative appointment. The patient was also instructed to avoid NSAIDs. Attending Statement: All documentation reviewed and & orders authorized by Dr. Axel Ruiz M.D. Mahamed Jiménez PA-C Jul 03, 2016 10:01
[2016-07-03] MEDS: Senna-Docusate 8.6-50 mg Tablet PO SCH ×2 (10:32→20:39)
[2016-07-03] MEDS ORDERED: Ondansetron 2 mg/mL 2 mL Inj ONE (13:09)
[2016-07-03] MEDS ORDERED: fentaNYL-PF 50 mCg/mL 2 mL Inj ONE (13:09)
[2016-07-03] MEDS ORDERED: Lidocaine PF 1% 30 mL Inj ONE (13:09)
[2016-07-03] MEDS ORDERED: Dexamethasone 4 mg/mL Inj ONE (13:09)
[2016-07-03] MEDS ORDERED: Glycopyrrolate 0.2 MG/ML 1mL Inj ONE (13:09)
[2016-07-03] MEDS ORDERED: Rocuronium 10 mg/mL 5 mL Inj ONE (13:09)
[2016-07-03] MEDS ORDERED: Propofol 10,000 mCg/mL 20 mL Inj ONE (13:09)
[2016-07-03] MEDS ORDERED: EPHEDrine/NS 5 mg/mL 5 mL Syringe ONE (13:09)
[2016-07-03 13:42] VITALS: BP 122/60; PULSE 63; RESP 18; O2SAT 100
--- NOTE | 2016-07-03 14:41 | NUR ---
Social Work-initial assessment/discharge: Data:See initial assessment. Pt is a 80 y/o female who was admitted for lumbar per H&P. Pt's insurance is L&I, but he also has MCR and PCP is Dr. Hernandez. EMR reviewed. Pt's readmission score is 3. SW met with pt to discuss discharge planning, SW role explained. Pt is alert and oriented x3. Pt resides at home with his and his son will be staying with them as well. Pt drives and uses fww or cane at baseline. PT has no HH or SNF history. Pt has no residential care insurance or VA benefits. Pt has completed DPOA/ advance directive, SW encouraged a copy to be brought in. has ordered HH services. SW discussed with pt, HH choice list provided. Pt has no agency preference. VINCENT referred to rotating calendar and made referral to [facility] with [facility] for RN and PT, access given. [facility] confirms they can take L&I and worker information provided. Pt's family to provide transport home today. All updated and agreeable to plan. Assessment:Pt who would benefit from HH. Plan;Pt to discharge home today via POV. F2F and orders given to [facility] For RN and PT. All updated and agreeable to plan. VINAYAK Beltrán Addendum: 07/03/16 at 1446 by SANDRA PEDERSON SS Amended: Links added.
--- NOTE | 2016-07-03 16:52 | NUR ---
Inserted 12Fr urinary catheter with sterile technique per hospital policy. 450mL clear yellow urine drained. Catheter removed. Patient tolerated procedure well.
[2016-07-03] MEDS: HYDROcodone-APAP 5-325 mg Tablet PO PRN ×3 (17:18→22:46)
[2016-07-03 19:40] VITALS: BP 155/66; PULSE 70; RESP 18; O2SAT 100
[2016-07-04] MEDS: HYDROcodone-APAP 5-325 mg Tablet PO PRN (01:45)
--- NOTE | 2016-07-04 04:49 | NUR ---
Urine retention Pt PVR 650, straight cath complete. Spoke to OSWALDO Jiménez and advised Pt was staying overnight as he is not able to urinate. He advised to continue to encourage Pt to void and straight cath one more time if needed. If Pt continues to be unable to void then place mane and Pt can D/C with it in place and OSWALDO Jiménez will make arrangements for him to see urology SARAH. Pt unable to void, PVR 500, straight cath completed. Pt continued to retain and unable to void, mane cath place with good output.
[2016-07-04 06:22] VITALS: BP 129/76; PULSE 80; RESP 17; O2SAT 96
[2016-07-04] MEDS ORDERED: Ondansetron 2 mg/mL 2 mL Inj IVPUSH PRN ×2 (09:45)
[2016-07-04] MEDS ORDERED: Senna-Docusate 8.6-50 mg Tablet PO PRN (09:45)
[2016-07-04] MEDS ORDERED: Magnesium Hydroxide 10 mL Oral Concentration PO PRN (09:45)
[2016-07-04] MEDS ORDERED: HYDROmorphone 1 mg/mL Inj IVPUSH PRN (09:45)
[2016-07-04] MEDS ORDERED: MetoCLOpramide 5 mg/mL 2 mL Inj IVPUSH PRN (09:45)
[2016-07-04] MEDS ORDERED: Lactated Ringer's 1,000 ML IV SCH (09:45)
[2016-07-04] MEDS: HYDROcodone-APAP 7.5-325 mg Tablet PO PRN ×2 (09:45→14:21)
[2016-07-04] MEDS ORDERED: hydrOXYzine Pamoate 25 mg Capsule PO PRN (09:45)
[2016-07-04] MEDS ORDERED: Polyethylene Glycol (PEG) 17 Gm Powder PO PRN (09:45)
[2016-07-04 09:52] VITALS: BP 177/73; PULSE 82; RESP 18; O2SAT 97
--- NOTE | 2016-07-04 14:44 | NUR ---
Discharge Pt DC home with sons. Home health arranged by VINCENT. Pt educated on catheter care and set up with leg bag. Detailed printed instructions sent home for his to assist him. Pain well controlled with Hydrocodone/Acetaminophen; given dose just prior to transport. Pt is SBA with FWW and following PT recommendations well. Follow up appointment scheduled with Urology for Sunday 07/09. Pt to schedule follow up with his marketing and communications officer. Dressing on lumbar spine is CDI.
[2016-07-04] MEDS ORDERED: Senna-Docusate 8.6-50 mg Tablet PO SCH (20:30)
[2016-07-05] MEDS ORDERED: buPROPion XL 300 mg ER24 Tablet PO SCH (08:30)
== END 2016-07-04 14:32 | disposition home health service (06) | DRG 320 ==
LOC: SAS 05:47 → OSC 06:00 → SAS 12:18 → OSC 12:18 → SAS 23:59 → OSC 23:59 → UNDOADMIN 07-04 09:35 → OSC 07-04 09:35
PROVIDERS: ADMIT Neurological Surgery; ATTEND Neurological Surgery
PROC: 01NB0ZZ Release Lumbar Nerve, Open Approach (ICD-10-PCS; principal; 2016-07-02 07:30)
DX: M48.06 Spinal stenosis, lumbar region (principal); N18.4 Chronic kidney disease, stage 4 (severe); E78.2 Mixed hyperlipidemia; M47.26 Other spondylosis with radiculopathy, lumbar region; M43.16 Spondylolisthesis, lumbar region; I12.9 Hypertensive chronic kidney disease with stage 1 through stage 4 chronic kidney disease, or unspecified chronic kidney disease; F32.9 Major depressive disorder, single episode, unspecified; Z87.891 Personal history of nicotine dependence; N40.0 Benign prostatic hyperplasia without lower urinary tract symptoms

== ENCOUNTER 2016-07-26 10:53 | Emergency (ER) | payer OTHER ==
[~2016-07-26] VITALS: Ht 170.2 cm; Wt 63.6 kg
[~2016-07-26 10:53] MED LIST changes: -Bacitracin 50,000 unit Inj IRRIGATION ONE; -Bupivacaine Liposome 1.3% 20 mL Inj INFILTRATE ONE; -CeFAZolin Inj 2 GM in IV Premix 1 EACH IV ONE; -Lactated Ringer's 1,000 ML IV SCH; -NAPR220C11 PO; -Thrombin Powder 5,000 Unit TOPICAL ONE
[2016-07-26 11:08] VITALS: BP 139/59; PULSE 64; RESP 16; O2SAT 99
--- NOTE | 2016-07-26 11:48 | ED.REPORT ---
HPI-Extremity Problem Lower Date of Service July 26, 2016 ED Provider: Chaz,Ed History of Present Illness: back surgery on 07/02/2016 by jason. no sob. US shows clot in left leg. lives with and son lives in one story house. ceci is primary care at [facility] in [place]. Had US in [place]. Noticed swelling 2 to 3 days ago. Has had 5 days of physical therapy. Nursing Notes Stated Complaint: POSSIBLE BLOOD CLOT LEFT LEG Chief Complaint: Extremity Trauma Nursing Notes Reviewed: Yes Allergies: Coded Allergies: No Known Allergies (Unverified , 07/26/16) Scheduled Bupropion ER (Wellbutrin XL) 300 Mg Tab.er.24h 300 MG PO DAILY Furosemide (Lasix) 40 Mg Tablet 40 MG PO DAILY Lisinopril (Lisinopril) 10 Mg Tablet 10 MG PO DAILY Scheduled PRN Docusate Sodium (Docusate Sodium) 250 Mg Capsule 250 MG PO BID PRN PRN For Constipation Hydrocodone-Acetaminophen 5-325 mg (Hydrocodone-Acetaminophen 5-325 mg) 1 Each Tablet 1-2 TABLET PO Q6H PRN PRN For Pain General Time Seen by MD: 11:47 Chief Complaint Leg injury left Hx Obtained From: Patient Onset Occurred: 3 days ago Past Medical History Past Medical History Denies: Asthma Past Surgical History back surgery Smoking History Never Smoker Social History Alcohol Use: Denies alcohol use Other Social History: Occupation lives in 1 story house 07/26/2016 with . Ambulatory Status Independent Review of Systems Review of Systems Note: no CP, SOB. No complaints of syncope/near syncope. No palpitations or episodes of tachycardia Basic Review of Systems Eyes: Vision NL, No discharge : No dysuria, No frequency Psychiatric: Normal thought content Physical Exam Initial Vital Signs Vital Signs (First) Date Time Temp Pulse Resp B/P Pulse Ox O2 Delivery O2 Flow Rate FiO2 07/26/16 11:08 36.2 64 16 139/59 99 Room Air Initial VS: Reviewed, Vital signs normal General/Constitutional: Well-developed, Well-nourished Head / Eyes: Atraumatic, Normocephalic, PERRL ENT: Mucous membranes moist, Conjunctiva normal, No scleral icterus Neck: Supple, Non-tender, Full range of motion Respiratory: Breath sounds normal, Clear to auscultation, No respiratory distress Cardiovascular: Regular rate & rhythm, Heart sounds normal, Intact distal pulses Abdomen / GI: Soft, Non-tender, No guarding, No rebound, No distention Back: No CVA tenderness Lymphatic: No lymphadenopathy Upper Extremities: Vascular intact, Neuro intact, No swelling, No tenderness Skin: Warm, Dry, No cyanosis Neurologic: Alert, Oriented, Nonfocal Psychiatric: Mood/affect normal, Behavior normal, Normal thought content Lower Extremity / Pelvis / MS: Atraumatic, Inspection NL, Full range of motion left ankle swelling and left lower extremnty swelling General/Constitutional: Awake, Alert, No acute distress Respiratory / Chest: Atraumatic, Breath sounds NL, Breath sounds = bilat, No respiratory distress Cardiovascular: Heart rate NL, Regular rhythm, Heart sounds NL Interpretation & Diagnostics US Soft Tissue/Musculoskeletal US from [facility] shows Segmentally occlusive acute deep vein thrombosis of the left distal popliteal. posterior tibial and peroneal veins. Re-Eval/Medical Decision Med Decision/Clinical Course Consult with Dr. Guy. Patient's Creatine clearance is 30, not a canidiate for lovenox. Patient is interested in xaralteo. Called primary care, will see patient on Friday or Friday. Pharmacy called at ER, prescription written for 15 mg BID for 3 weeks and then 20 mg daily for 3 months. Insurance does cover the dose at 15 mg BID. Primary care to monitor kidney function. Confirmed dosing with pharmacy Discharge & Departure Impression: Primary Impression: Deep venous thrombosis DVT location: lower extremity Laterality: left Chronicity: acute Disposition: Home Patient Instructions: Deep Venous Thrombosis (ED) Additional Instructions: The ultrasound shows you have a clot in your left lower leg. Use xarelto 15 mg in the am for 3 weeks and the go to 20 mg daily. I have spoken with the nurse at Dr. Jennings office, please call today for an appointment on Friday or Friday. You may need to pay for the medication for 4 or 5 days until any prior approval happens.. Referrals: OTHER,PHYSICIAN (PCP) EDSupervising Provider for [facility]: Ofelia Guy MD Attending Statement Patient seen and examined. Left lower extremity edema. Ultrasound confirms DVT from the popliteal fossa and distal. No evidence of more proximal DVT no evidence of pulmonary embolism. Creatinine clearance at 30. Reluctant to use Lovenox with the creatinine clearance that low. Xaralto can be an option, would suggest 10 mg dosing do to reduced renal clearance but insurance will cover the 15mg size only. Daily dosing will certainly be easier for the patient ,need close renal follow-up. This is discussed with his PCP and followup is anticipated in 2-3 days with PCP. Patient is agreeable to our current plan copies to: Oscar Jennings MD, Sue ARNP July 26, 2016 11:47 Ofelia Guy MD July 26, 2016 14:23
[2016-07-26 15:00] VITALS: BP 156/74; PULSE 59; RESP 17; O2SAT 96
== END 2016-07-26 15:36 | disposition home or self-care (01) ==
LOC: SED 10:53
DX: I82.402 Acute embolism and thrombosis of unspecified deep veins of left lower extremity (principal); Z98.890 Other specified postprocedural states